=== PATIENT | female | born 1990 | race Caucasian/White ===

== ENCOUNTER → 2022-02-26 | Emergency (ER) | payer BC ==
[~2022-02-26] VITALS: Ht 160 cm; Wt 86.2 kg
[~2022-02-26] MED LIST: HYDR-3917 PO; HYDROcodone/ACETAMIN 10-325 MG TAB PO ONE; IBUP-1971 PO
[2022-02-26 21:25] VITALS: BP_SYST 141
--- NOTE | 2022-02-26 21:25 | NUR ---
Patient to ER bed 7 to gown for evaluation. Side rails up. Report given to Mikal FRANCES.
--- NOTE | 2022-02-26 21:45 | NUR ---
First contact. Pt presently in wheelchair next to stretcher. Admits to stepping into pot hole. c/o right ankle pain 05/11.
--- NOTE | 2022-02-26 22:00 | NUR ---
Dr. Pereyra present in room at this time performing assessment.
[2022-02-27 00:10] VITALS: BP_SYST 130
--- NOTE | 2022-02-27 00:35 | NUR ---
Patient given written and verbal discharge instructions and verbalizes understanding. ER MD discussed with patient the results and treatment provided. Patient in stable condition. ID arm band removed. Rx of hydrocodone & ibuprofen given. Patient educated on pain management and to follow up with PMD. Work excuse provided. Crutch teaching done and pt able to demonstrate back the correct way to ambulate with crutches. Also right has short leg posterior splint intact and has +pulse, +motor, +sensory and ER provider assessed for correct placement.Opportunity for questions provided and answered. Medication side effect fact sheet provided.
== END | disposition home or self-care (01) ==
LOC: SED 21:21
DX: S82.61XA Displaced fracture of lateral malleolus of right fibula, initial encounter for closed fracture (principal); Z79.899 Other long term (current) drug therapy; W18.39XA Other fall on same level, initial encounter; Y93.89 Activity, other specified; Y92.89 Other specified places as the place of occurrence of the external cause; Y99.8 Other external cause status
CPT/HCPCS: 99283